=== PATIENT | male | born 1970 | race Caucasian/White ===

== ENCOUNTER 2021-04-30 05:32 | Day surgery (SDC) | payer OTHER ==
[2021-04-26 17:33] VITALS: BMI 31.3
[2021-04-30] MEDS ORDERED: MIDAZOLAM HCL 2 MG/2 ML SINGLE DOSE VIAL ONE ×3 (15:23→15:39)
[2021-04-30] MEDS ORDERED: PROPOFOL 20 ML ONE (15:38)
[2021-04-30 18:23] VITALS: TEMP 97.6
[2021-04-30 18:50] VITALS: BP 122/73; PULSE 76
== END 2021-04-30 17:45 | disposition home or self-care (01) ==
LOC: JASU-SURG 05:32
PROVIDERS: ATTEND Urology
PROC: 0TF4XZZ Fragmentation in Left Kidney Pelvis, External Approach (ICD-10-PCS; principal; 2021-04-30 14:00)
DX: N20.0 Calculus of kidney (principal); Z88.1 Allergy status to other antibiotic agents

== ENCOUNTER 2021-08-20 04:31 | Day surgery (SDC) | payer OTHER ==
[2021-08-17 10:01] VITALS: BMI 32.3
[2021-08-20] MEDS ORDERED: MIDAZOLAM HCL 2 MG/2 ML SINGLE DOSE VIAL ONE (13:30)
[2021-08-20] MEDS ORDERED: PROPOFOL 20 ML ONE (13:33)
[2021-08-20] MEDS ORDERED: GENTAMICIN SO4 80 MG/2 ML VIAL IVPB ONE (13:34)
[2021-08-20] MEDS ORDERED: ceFAZolin SODIUM 1 GM VIAL IVPB ONE (13:34)
[2021-08-20] MEDS ORDERED: GENTAMICIN SO4 80 MG/2 ML VIAL ONE (13:35)
[2021-08-20 14:33] VITALS: TEMP 97.2
[2021-08-20 14:38] VITALS: BP 125/74; PULSE 64
== END 2021-08-20 15:20 | disposition home or self-care (01) ==
LOC: JASU-SURG 04:31
PROVIDERS: ATTEND Urology
PROC: 0TF3XZZ Fragmentation in Right Kidney Pelvis, External Approach (ICD-10-PCS; principal; 2021-08-20 11:30)
DX: N20.0 Calculus of kidney (principal)